=== PATIENT | female | born 1965 | race Caucasian/White ===

== ENCOUNTER 2019-04-10 11:02 | Outpatient (CLI) | payer OTHER, SELFPAY | END 2019-04-10 12:00 | disposition home or self-care (01) | LOC: SPT 11-13 11:04 | PROVIDERS: Family Provider Nurse Practitioner Family; PCP Nurse Practitioner Family; Visit Provider Orthopaedic Surgery | DX: Z47.89 Encounter for other orthopedic aftercare (principal); M65.4 Radial styloid tenosynovitis [de Quervain] | CPT/HCPCS: L3809 ==

== ENCOUNTER → 2019-11-26 08:08 | Outpatient (BNVA) | payer OTHER, SELFPAY | PROVIDERS: Family Provider Nurse Practitioner Family; PCP Nurse Practitioner Family; Visit Provider Nurse Practitioner Family | DX: E11.9 Type 2 diabetes mellitus without complications (principal); I10 Essential (primary) hypertension; E55.9 Vitamin D deficiency, unspecified | CPT/HCPCS: 36415; 80053; 80061; 81003; 82306; 83036; 84443; 85007; 85027 ==

== ENCOUNTER → 2019-12-18 10:11 | Outpatient (BNVA) | payer OTHER, SELFPAY | PROVIDERS: Family Provider Nurse Practitioner Family; PCP Nurse Practitioner Family; Visit Provider Internal Medicine | DX: D86.9 Sarcoidosis, unspecified (principal); M79.7 Fibromyalgia; E55.9 Vitamin D deficiency, unspecified; M65.4 Radial styloid tenosynovitis [de Quervain]; Z51.81 Encounter for therapeutic drug level monitoring | CPT/HCPCS: 99203 ==

== ENCOUNTER 2019-12-18 11:34 | Outpatient (CLI) | payer OTHER, SELFPAY ==
--- NOTE | 2019-12-18 11:46 | XRR_ITS ---
PROCEDURE INFORMATION: Exam: XR Right Hand Exam date and time: 12/18/2019 12:13 PM Age: 54 years old Clinical indication: Pain; Hand; Bilateral; Additional info: Hand pain TECHNIQUE: Imaging protocol: XR Right hand. Views: Frontal and lateral views. COMPARISON: No relevant prior studies available. FINDINGS: Bones/joints: Normal. Soft tissues: Normal. XR/XR hand RT 2V [id number] IMPRESSION: No acute findings.
--- NOTE | 2019-12-18 11:46 | XRR_ITS ---
PROCEDURE INFORMATION: Exam: XR Left Hand Exam date and time: 12/18/2019 12:14 PM Age: 54 years old Clinical indication: Pain; Hand; Bilateral; Additional info: Hand pain TECHNIQUE: Imaging protocol: XR Left hand. Views: Frontal and lateral views. COMPARISON: No relevant prior studies available. FINDINGS: Bones/joints: Normal. Soft tissues: Normal. XR/XR hand LT 2V [id number] IMPRESSION: No acute findings.
--- NOTE | 2019-12-18 11:46 | XRR_ITS ---
PROCEDURE INFORMATION: Exam: XR Bilateral Hips Exam date and time: 12/18/2019 12:25 PM Age: 54 years old Clinical indication: Hip pain; Bilateral TECHNIQUE: Imaging protocol: XR bilateral hips Views: Bilateral coned AP neutral and frogleg views, 4 views. COMPARISON: No relevant prior studies available. FINDINGS: Bones/joints: Unremarkable. No acute fracture. Soft tissues: Unremarkable. XR/XR hip BI 3-4V wo/w pel [id number] IMPRESSION: No acute findings.
[2019-12-18 12:06] LABS: Add Urine Microscopic? NO
[2019-12-18 12:08] LABS: Basophils % 0.4 %; Eosinophils # 0.2 10^3/uL (0.0-0.8); Eosinophils % 2.9 %; Hematocrit 39.7 % (37.0-47.0); Hemoglobin 12.6 g/dL (11.5-15.3); Lymphocytes # 2.7 10^3/uL (0.8-4.8); Mean Corpuscular HGB Conc 31.7 g/dL (30.0-36.0); Mean Corpuscular Hemoglobin 26.8 pg (28.0-34.0); Mean Corpuscular Volume 84.3 fL (81-99); Mean Platelet Volume 9.5 fL (7.4-10.4); Monocytes # 0.5 10^3/uL (0.2-0.9); Monocytes % 5.6 %; Neutrophils # 4.52 10^3/uL (1.8-7.7); Neutrophils % 56.7 %; Nucleated Red Blood Cells % 0 %; Platelet Count 391 10^3/cmm (130-400); Red Blood Count 4.71 10^6/uL (4.1-5.3); Red Cell Distribution Width 13.7 % (12.1-15.1)
[2019-12-18 12:24] LABS: Protein Urine Neg (Negative); Urine Appearance Clear (CLEAR); Urine Color Yellow (Yellow); pH Urine 6.5 (5-7)
[2019-12-18 12:25] LABS: Bilirubin Urine Neg (Negative); Blood Urine Neg (Negative); Glucose Urine UA Norm (Normal); Ketones Urine Negative (Negative); Leukocyte Esterase Urine Negative (Negative); Nitrate Urine Negative (Negative); Urobilinogen Urine Norm (Negative)
[2019-12-18 12:46] LABS: 25 Hydroxy Vitamin D 30 ng/mL (30-100); Alanine Aminotransferase 54 U/L (0-33); Albumin Level 4.4 g/dL (3.5-5.2); Alkaline Phosphatase 108 IU/L (35-105); Anion Gap 15.9 (5-19); Aspartate Amino Transferase 34 U/L (0-32); Blood Urea Nitrogen 7 mg/dL (6-20); C Reactive Protein 19.4 mg/L (0.0-4.9); Calcium 9.2 mg/dL (8.5-10.5); Carbon Dioxide 25 mmol/L (22-29); Chloride 100 mmol/L (98-107); Creatine Phosphokinase 141 U/L (26-192); Globulin 3.4 g/dL (1.3-4.6); Glomerular Filtration Rate 128.6 mL/min (90-130); Glucose 168 mg/dL (65-115); Osmolality Calculated 286 mOsm/kg (285-295); Potassium 3.9 mmol/L (3.5-5.1); Sodium 137 mmol/L (136-145); Total Bilirubin 0.4 mg/dL (0.15-1.2); Total Protein 7.8 g/dL (6.6-8.7)
[2019-12-18 13:06] LABS: Erythrocyte Sedimentation Rate 41 mm/hr (0-15)
[2019-12-18 13:08] LABS: Hepatitis B Core AB, Total Non-Reactive (Nonreactive); Hepatitis B Surface Antigen Non-Reactive (Nonreactive); Hepatitis C Virus Antibody Non-Reactive (Nonreactive)
[2019-12-19 11:56] LABS: COMPLEMENT COMPONENT C3C 228 mg/dL (83-193); COMPLEMENT COMPONENT C4C 52 mg/dL (15-57); COMPLEMENT, TOTAL (CH50) >60 U/mL (31-60)
[2019-12-19 13:53] LABS: Cyclic Citrullinated Peptide <16 UNITS
[2019-12-20 12:33] LABS: CENTROMERE B ANTIBODY <1.0 NEG AI (<1.0 NEG); JO-1 ANTIBODY <1.0 NEG AI (<1.0 NEG); RNP ANTIBODY <1.0 NEG AI (<1.0 NEG); SCL-70 ANTIBODY <1.0 NEG AI (<1.0 NEG); SJOGREN'S ANTIBODY (SS-A) <1.0 NEG AI (<1.0 NEG); SM ANTIBODY <1.0 NEG AI (<1.0 NEG)
[2019-12-20 14:33] LABS: ANA SCREEN, IFA NEGATIVE (NEGATIVE)
[2019-12-20 15:28] LABS: THYROID PEROXIDASE ANTIBODIES <1 IU/mL (<9)
[2019-12-20 19:47] LABS: HLA-B27 NEGATIVE (NEGATIVE)
[2019-12-21 12:13] LABS: Tissue Transglutaminase IgA Ab <1 U/mL; Tissue transglutaminase Ab.IgG 3 U/mL
[2019-12-23 16:37] LABS: Gliadin Ab.IgA 4 U (<20); Gliadin Ab.IgG 1 U (<20)
[2019-12-24 02:52] LABS: DNA AB (DS) CRITHIDIA,IFA NEGATIVE (NEGATIVE)
[2019-12-26 01:09] LABS: Immunoglobulin A 212 mg/dL (47-310)
== END 2019-12-18 11:35 | disposition home or self-care (01) ==
LOC: LAB 11:42
PROVIDERS: PCP Nurse Practitioner Family; Visit Provider Internal Medicine
DX: D86.9 Sarcoidosis, unspecified (principal); M25.551 Pain in right hip; M25.552 Pain in left hip; M79.642 Pain in left hand; M79.641 Pain in right hand
CPT/HCPCS: 36415; 73120; 73522; 80053; 81003; 82306; 82550; 82784; 83516; 85025; 85651; 86140; 86431; 86704; 86803; 86812; 87340

== ENCOUNTER → 2019-12-24 16:33 | Outpatient (BNVA) | payer OTHER, SELFPAY | PROVIDERS: PCP Nurse Practitioner Family; Visit Provider Internal Medicine | DX: Z20.828 Contact with and (suspected) exposure to other viral communicable diseases (principal) | CPT/HCPCS: 87635 ==

== ENCOUNTER 2019-12-28 08:15 | Day surgery (SDC) | payer OTHER, SELFPAY ==
[2019-12-26 10:42] VITALS: BMI 42.5
--- NOTE | 2019-12-28 08:15 | W.PM.OPSUD ---
Surgery/Procedure H&P Update DATE OF PROCEDURE: December 28, 2019 DATE H&P PERFORMED: 12/18/19 PLANNED PROCEDURE: Operation Date: 12/28/19 10:15 Proposed Procedures p Colonoscopy(Not Applicable) - Michele Alvarado MD
[2019-12-28 09:22] VITALS: BP 131/85; PULSE 66; RESP 18; TEMP 36.3; O2SAT 99
[2019-12-28 09:37] LABS: Glucose Point of Care 154 mg/dL (70-110)
[2019-12-28] MEDS: sodium chloride 0.9% 1,000 ML 30 ML IV (10:20)
--- NOTE | 2019-12-28 10:26 | ANES.PREANE2 ---
Pre-Anesthetic Assessment Pre-Anesthetic Assessment: Height/Weight: Height 1.63 m Weight 112.491 kg Temp Pulse Resp BP Pulse Ox 97.3 F L 66 18 131/85 99 12/28/19 09:22 12/28/19 09:22 12/28/19 09:22 12/28/19 09:22 12/28/19 09:22 Preop Diagnosis: screening Proposed Procedure: Operation Date: 12/28/19 10:15 Proposed Procedures p Colonoscopy(Not Applicable) - Michele Alvarado MD Familial anesthetic complications: None Last intake: Intake Last Liquid Date 12/27/19 Last Liquid Time 23:00 Last Solid Date 12/26/19 Social: Social History: No alcohol and No tobacco Exam: Pre-Anes Outpt Exam: alert, oriented x 3, clear to auscultation bilaterally and regular rate & rhythm Airway: Cervical ROM: WNL MP: 2 Dentition: False Pulmonary: Pulmonary: Cough (dry chronic cough) Comments: pulmonary sarcoidosis - goes up one flight of stairs CV/HEM: CV/HEM: HTN GI: GI: GERD Metabolic: Metabolic: DM Musc/skel: Musc/skel: Fibromyalgia Anesthetic Plan: ASA status: 2 Risk of > 500 ml blood loss (7ml/kg in children): No Meds/Allergies Current Medications: Current Medications Generic Name Dose Route Start Last Admin Trade Name Freq PRN Reason Stop Dose Admin Sodium Chloride 1,000 mls @ 30 ml s/hr 12/28/19 09:15 12/28/19 10:20 Sodium Chloride 0.9% IV 30 mls/hr .Q24H KUNAL Administration PFSH Anesthesia PFSH: Medical History (Updated 12/18/19 @ 15:15 by Michele Alvarado MD) Breast cancer screening by mammogram Essential hypertension Fibromyalgia Sarcoidosis Type 2 diabetes mellitus Urinary incontinence, mixed Vitamin D deficiency Surgical History H/O: hysterectomy Hx of appendectomy Family History Mother Cancer Social History (Updated 12/18/19 @ 14:31 by WADE Gallegos) Smoking and tobacco status: never smoked Alcohol intake: current Alcohol intake frequency: 0-2 Drinks per Day History of recent travel: No Data Anesthesia Other Labs: Laboratory Results - last 48 hr 12/28/19 09:35 POC Glucose 154 Cardiac Studies: No Data to Display
--- NOTE | 2019-12-28 11:20 | ANE.PACU2 ---
Inpatient post-anesthesia follow up: Airway intact: Yes Vital signs: Temperature 97.3 F Pulse Rate 66 Respiratory Rate 18 Blood Pressure 131/85 Pulse Oximetry 99 Oxygen Delivery Me thod Room Air Oxygen Flow Rate Fraction of Inspir ed Oxygen Hydration adequate: Yes Nausea and vomiting: No Pain level: 1 Mental status: Baseline
== END 2019-12-28 11:20 | disposition home or self-care (01) ==
PROVIDERS: PCP Nurse Practitioner Family; Visit Provider Internal Medicine
PROC: 0DJD8ZZ Inspection of Lower Intestinal Tract, Via Natural or Artificial Opening Endoscopic (ICD-10-PCS; CPT 45378; principal; 2019-12-28 10:15)
DX: Z12.11 Encounter for screening for malignant neoplasm of colon (principal); Z86.010 Personal history of colon polyps; Z80.0 Family history of malignant neoplasm of digestive organs; I10 Essential (primary) hypertension; M79.7 Fibromyalgia; E11.9 Type 2 diabetes mellitus without complications; Z79.84 Long term (current) use of oral hypoglycemic drugs; K21.9 Gastro-esophageal reflux disease without esophagitis
CPT/HCPCS: 12345; 36416; 45378; 82962; J2704; J7030

== ENCOUNTER → 2020-08-04 10:39 | Outpatient (BNVA) | payer OTHER, SELFPAY | PROVIDERS: PCP Nurse Practitioner Family; Visit Provider Nurse Practitioner Family | DX: E55.9 Vitamin D deficiency, unspecified (principal); Z13.6 Encounter for screening for cardiovascular disorders; J22 Unspecified acute lower respiratory infection; E11.9 Type 2 diabetes mellitus without complications; I10 Essential (primary) hypertension; D64.9 Anemia, unspecified; D86.9 Sarcoidosis, unspecified; J01.90 Acute sinusitis, unspecified; B96.89 Other specified bacterial agents as the cause of diseases classified elsewhere; R05 Cough; Z20.822 Contact with and (suspected) exposure to COVID-19 | CPT/HCPCS: 71046; 80053; 80061; 81003; 82306; 83036; 83550; 84439; 84443; 85025; 85651; 86140 ==

== ENCOUNTER → 2020-08-12 11:32 | Outpatient (BNVA) | payer OTHER, SELFPAY | PROVIDERS: PCP Nurse Practitioner Family; Visit Provider Internal Medicine Pulmonary Disease | DX: D86.9 Sarcoidosis, unspecified (principal); J45.909 Unspecified asthma, uncomplicated | CPT/HCPCS: 82164; 82785; 85025; 86003; 87635 ==

== ENCOUNTER → 2020-09-19 15:32 | Outpatient (BNVA) | payer OTHER, SELFPAY | PROVIDERS: PCP Nurse Practitioner Family; Visit Provider Nurse Practitioner Family | DX: Z20.822 Contact with and (suspected) exposure to COVID-19 (principal) | CPT/HCPCS: 87635 ==

== ENCOUNTER 2020-09-24 10:26 | Outpatient (CLI) | payer OTHER, SELFPAY ==
--- NOTE | 2020-09-24 10:30 | CT_ITS ---
WS: [id number] CT CHEST HIGH-RESOLUTION TECHNIQUE: High-resolution Noncontrast CT of the chest with coronal and sagittal reformatted images. Inspiration, expiration, prone imaging CLINICAL INFORMATION: D86.9 - Sarcoidosis, unspecified COMPARISON: None. DLP: 1173.[address] scans at [facility] use at least one of these dose optimization techniques: automat ed exposure control; mA and/or kV adjustment per patient size (includes targeted exams where dose is matched to clinical indication); or iterative reconstruction. FINDINGS: Normal inspiration. Both lungs are well aerated. No acute pulmonary infiltrates. No evidence of inter stitial lung disease. No reticular opacities or subpleural honeycombing. No significant bronchiectasi s. Mild air-trapping in the lower lobes on expiratory imaging. No mediastinal or hilar lymphadenopathy. Diffuse fatty infiltration of the liver. Adrenal glands are normal. No axillary lymphadenopathy. Normal thoracic spine. CT/CT chest wo con [id number] IMPRESSION: 1. Normal inspiration. No acute pulmonary infiltrate traits. No suspicious pul monary parenchymal opacities. 2. No mediastinal or hilar lymphadenopathy. 3. No evidence of interstitial lung disease. No reticular opacities or subpleu ral honeycombing. 4. No significant bronchiectasis. 5. Small amount of air trapping on expiratory imaging in the lung bases. 6. No other significant findings.
== END 2020-09-24 10:27 | disposition home or self-care (01) ==
LOC: RAD 10:27
PROVIDERS: PCP Nurse Practitioner Family; Visit Provider Internal Medicine Pulmonary Disease
DX: D86.9 Sarcoidosis, unspecified (principal)
CPT/HCPCS: 71250

== ENCOUNTER → 2022-01-11 08:42 | Outpatient (BNVA) | payer OTHER, SELFPAY | PROVIDERS: Visit Provider Nurse Practitioner | DX: E11.9 Type 2 diabetes mellitus without complications (principal); E78.2 Mixed hyperlipidemia; E55.9 Vitamin D deficiency, unspecified; I10 Essential (primary) hypertension | CPT/HCPCS: 80053; 80061; 82306; 83036; 84443; 85025 ==

== ENCOUNTER → 2022-01-27 10:36 | Outpatient (BNVA) | payer OTHER, SELFPAY | PROVIDERS: PCP Nurse Practitioner; Visit Provider Nurse Practitioner | DX: M25.561 Pain in right knee (principal); S86.911A Strain of unspecified muscle(s) and tendon(s) at lower leg level, right leg, initial encounter; X58.XXXA Exposure to other specified factors, initial encounter | CPT/HCPCS: 73562 ==

== ENCOUNTER → 2023-02-15 08:12 | Outpatient (BNVA) | payer SELFPAY | PROVIDERS: PCP Nurse Practitioner; Visit Provider Nurse Practitioner Family | DX: D64.9 Anemia, unspecified (principal); D86.9 Sarcoidosis, unspecified; E11.9 Type 2 diabetes mellitus without complications; E55.9 Vitamin D deficiency, unspecified; E78.2 Mixed hyperlipidemia; F32.A Depression, unspecified; F41.9 Anxiety disorder, unspecified; I10 Essential (primary) hypertension; M79.7 Fibromyalgia; Z13.6 Encounter for screening for cardiovascular disorders; E56.9 Vitamin deficiency, unspecified | CPT/HCPCS: 80053; 80061; 81003; 82306; 82607; 82746; 83036; 84443; 85025; 85651; 86038; 86140; 87077; 87086; 87184 ==

== ENCOUNTER 2023-03-30 10:59 | Outpatient (CLI) | payer OTHER, SELFPAY ==
--- NOTE | 2023-03-30 11:00 | MM_ITS ---
WS: [id number] BILATERAL SCREENING DIGITAL TOMOSYNTHESIS MAMMOGRAM WITH CAD HISTORY: Z12.31 - Encounter for screening mammogram for malignant ... COMPARISON: 12/30/2014 and 12/17/2014 Bilateral CC and MLO views with tomosynthesis and synthetic mammography submitted. Computer aided det ection analyzed. Breast composition: There are scattered areas of fibroglandular density. No suspicious masses, microc alcifications or architectural distortion. Benign bilateral breast arterial calcifications. IMPRESSION: MM/[place] [id number] BI-RADS: 2-Benign FOLLOW UP: 1 Year Follow-up
== END 2023-03-30 11:00 | disposition home or self-care (01) ==
LOC: MOBLMAM 11:06
PROVIDERS: PCP Nurse Practitioner Family; Visit Provider Nurse Practitioner Family
DX: Z12.31 Encounter for screening mammogram for malignant neoplasm of breast (principal)
CPT/HCPCS: 77063; 77067; 80053; 80061; 81003; 82306; 82607; 82746; 83036; 84443; 85025; 85651; 86038; 86140; 87077; 87086; 87184

== ENCOUNTER → 2023-11-03 09:46 | Outpatient (BNVA) | payer OTHER, SELFPAY | PROVIDERS: PCP Nurse Practitioner Family; Visit Provider Nurse Practitioner Family | DX: I10 Essential (primary) hypertension (principal); F41.9 Anxiety disorder, unspecified; F32.A Depression, unspecified; M79.7 Fibromyalgia; E78.2 Mixed hyperlipidemia; E11.9 Type 2 diabetes mellitus without complications; D64.9 Anemia, unspecified; D86.9 Sarcoidosis, unspecified | CPT/HCPCS: 80053; 80061; 81003; 82306; 82607; 82728; 82746; 83036; 83550; 84443; 85025; 85651; 86140 ==

== ENCOUNTER → 2024-03-08 10:13 | Outpatient (BNVA) | payer OTHER, SELFPAY | PROVIDERS: PCP Nurse Practitioner Family; Visit Provider Nurse Practitioner Family | DX: K81.9 Cholecystitis, unspecified (principal); I10 Essential (primary) hypertension; E78.2 Mixed hyperlipidemia; E11.9 Type 2 diabetes mellitus without complications; E55.9 Vitamin D deficiency, unspecified; D64.9 Anemia, unspecified | CPT/HCPCS: 80053; 80061; 81003; 82150; 82306; 82746; 83036; 83550; 83690; 83921; 84443; 85025 ==

== ENCOUNTER 2024-03-13 08:46 | Outpatient (CLI) | payer OTHER, SELFPAY ==
--- NOTE | 2024-03-13 09:00 | USR_ITS ---
PROCEDURE INFORMATION: Exam: US Abdomen Complete Exam date and time: 03/13/2024 8:54 AM Age: 59 years old Clinical indication: Condition or disease; Other: Cholecystitis; Additional info: K81.9 - cholecystitis, unspecified TECHNIQUE: Imaging protocol: Real-time ultrasound of the abdomen with image documentation. Complete exam. COMPARISON: CT abdomen pelvis con [id number] 11/04/2017 2:59 PM FINDINGS: Liver: Normal. No mass. Normal portal vein. Gallbladder: There appeared to be low-density gallstones or sludge balls within the gallbladder. There is some acoustic shadowing which would favor calculi. There is no gallbladder wall thickening. Biliary ducts: Normal. No stones. No dilation. Pancreas: Visualized pancreas is unremarkable. Right kidney: Normal. No mass. No hydronephrosis. Left kidney: Normal. No mass. No hydronephrosis. Spleen: Normal. No splenomegaly. Aorta: Normal. No aneurysm. Inferior vena cava: Normal. US/US abdomen complete* [id number] IMPRESSION: Probable gallstones as described above.
== END 2024-03-13 08:47 | disposition home or self-care (01) ==
LOC: RAD 08:47
PROVIDERS: PCP Nurse Practitioner Family; Visit Provider Nurse Practitioner Family
DX: K81.9 Cholecystitis, unspecified (principal); I10 Essential (primary) hypertension; E78.2 Mixed hyperlipidemia; E11.9 Type 2 diabetes mellitus without complications; E55.9 Vitamin D deficiency, unspecified; D64.9 Anemia, unspecified
CPT/HCPCS: 76700

== ENCOUNTER 2024-04-12 11:01 | Outpatient (CLI) | payer OTHER, SELFPAY ==
--- NOTE | 2024-04-12 11:20 | MM_ITS ---
WS: [id number] BILATERAL SCREENING DIGITAL TOMOSYNTHESIS MAMMOGRAM WITH CAD HISTORY: SCREENING COMPARISON: 03/30/2023, 12/17/2014 Bilateral CC and MLO views with tomosynthesis and synthetic mammography submitted. Computer aided det ection analyzed. Breast composition: There are scattered areas of fibroglandular density. No suspicious masses, microc alcifications or architectural distortion. Moderate bilateral breast arterial calcifications. MM/MM scr BI tomosynthesis [id number] IMPRESSION: BI-RADS: 2 - Benign. FOLLOW UP: 1 Year Follow-up
== END 2024-04-12 11:02 | disposition home or self-care (01) ==
PROVIDERS: PCP Nurse Practitioner Family; Visit Provider Nurse Practitioner Family
DX: Z12.31 Encounter for screening mammogram for malignant neoplasm of breast (principal); R92.323 Mammographic fibroglandular density, bilateral breasts; R92.1 Mammographic calcification found on diagnostic imaging of breast
CPT/HCPCS: 77063; 77067